=== PATIENT | female | born 1990 | race Caucasian/White ===

== ENCOUNTER 2020-12-11 03:31 | Observation (INO) ==
[2020-12-11 04:22] LABS: Bacteria,Urine Few per hpf (None-Few); Bilirubin,Urine Negative (Negative); Blood,Urine Negative (Negative); Clarity,Urine Turbid (Clear); Color,Urine Yellow (Yellow); Glucose,Urine (UA) Normal (Normal); Ketones,Urine 40 mg/dL (Negative); Leukocyte Esterase,Urine Trace (Negative); Mucus,Urine Few per lpf (None-Few); Nitrite,Urine Negative (Negative); Protein,Urine Trace mg/dL (Neg-Trace); Specific Gravity,Urine 1.019 (1.010-1.025); Squamous Epithelial Cell,Urine Moderate per hpf (None-Few); Urobilinogen,Urine Normal (Normal); WBC,Urine 0-3 per hpf (0-3)
[2020-12-11] MEDS ORDERED: hydrOXYzine pamoate 25 MG CAPSULE PO ONE (04:58)
== END 2020-12-11 10:55 | disposition home or self-care (01) ==
LOC: 1NENULAB
PROVIDERS: ADMIT Registered Nurse; ATTEND Registered Nurse

== ENCOUNTER 2020-12-23 21:09 | Observation (INO) | END 2020-12-23 22:17 | disposition home or self-care (01) | LOC: 1NENULAB | PROVIDERS: ADMIT Advanced Practice Midwife; ATTEND Advanced Practice Midwife ==

== ENCOUNTER 2020-12-30 08:07 | Inpatient (IN) ==
[2020-12-30] MEDS ORDERED: Ondansetron 4 MG/2 ML VIAL IVP PRN (08:30)
[2020-12-30] MEDS ORDERED: Lidocaine 1% 20 ML MDV INFILT PRN (08:30)
[2020-12-30] MEDS ORDERED: Ringers Solution, Lactated 1,000 ML IVC SCH (08:30)
[2020-12-30] MEDS ORDERED: Famotidine 20 MG/2 ML VIAL IVP PRN (08:30)
[2020-12-30] MEDS ORDERED: Metoclopramide 10 MG/2 ML VIAL IVP PRN (08:30)
[2020-12-30] MEDS ORDERED: *HR* Nalbuphine 10 MG/ML AMPUL IV PRN (08:30)
[2020-12-30] MEDS ORDERED: Naloxone 0.4 MG/ML INJ IVP PRN (08:30)
[2020-12-30 11:00] LABS: Basophils % 0.2 %; Eosinophils # 0.1 K/mcL (0.0-0.6); Hematocrit 36.4 % (35.3-44.9); Hemoglobin 11.7 g/dL (11.5-15.4); Immature Granulocytes % 0.6 % (0-4); Lymphocytes # 1.2 K/mcL (0.6-4.6); Lymphocytes % 10.1 %; Mean Corpuscular HGB Conc 32.1 g/dL (31.6-35.5); Mean Corpuscular Hemoglobin 26.4 pg (28.0-33.3); Mean Platelet Volume 11.3 fL (9.4-12.4); Monocytes # 0.6 K/mcL (0.0-1.3); Monocytes % 5.5 %; Neutrophils # 9.5 K/mcL (1.6-8.9); Platelet Count 211 K/mcL (140-400); Red Blood Count 4.44 M/mcL (3.82-4.97); Red Cell Distribution Width 15.9 % (11.5-14.5); Segmented Neutrophils % 82.6 %; White Blood Count 11.5 K/mcL (4.3-11.1)
[2020-12-30] MEDS: miSOPROStoL 25 MCG TABLET PO PRN ×2 (11:36→16:38)
[2020-12-30 11:42] LABS: Amphetamine Screen,Urine Negative ng/mL (Cutoff=1000); Barbiturate Screen,Urine Negative ng/mL (Cutoff=200); Benzodiazepines Screen,Urine Negative ng/mL (Cutoff=200); Cannabinoid Screen,Urine Negative ng/mL (Cutoff = 50); Cocaine Screen,Urine Negative ng/mL (Cutoff= 300); Opiate Screen,Urine Negative ng/mL (Cutoff=300); Phencyclidine Screen,Urine Negative ng/mL (Cutoff=25)
[2020-12-30] MEDS ORDERED: EPHEDrine 50 MG/ML VIAL IVP PRN (13:10)
[2020-12-30] MEDS ORDERED: Epidural Premix (fent/bupiv) 110 ML EP SCH (13:15)
[2020-12-30] MEDS ORDERED: Oxytocin 20 units/ LR 1000 mL 20 UNIT/1,000 ML BAG IVC SCH (18:30)
[2020-12-30] MEDS ORDERED: Acetaminophen 325 MG TABLET PO PRN (21:53)
[2020-12-31] MEDS ORDERED: Ondansetron 4 MG/2 ML VIAL ONE (04:50)
[2020-12-31] MEDS ORDERED: *HR* Phenylephrine 10 MG/ML VIAL ONE (04:50)
[2020-12-31] MEDS ORDERED: EPHEDrine 50 MG/ML VIAL ONE (04:52)
[2020-12-31] MEDS ORDERED: Ketorolac 30 MG/ML VIAL ONE (04:53)
[2020-12-31] MEDS ORDERED: Lidocaine/EPI 1:200k 2% PF 20 ML VIAL ONE (04:59)
[2020-12-31] MEDS ORDERED: *HR* FentaNYL (PF) 100 MCG/2 ML VIAL ONE ×2 (05:03→05:14)
[2020-12-31] MEDS ORDERED: *HR* Morphine Sulfate/PF 10 MG/10 ML AMPUL ONE (05:55)
[2020-12-31] MEDS ORDERED: Rho Immune Globulin 1,500 UNIT SYRINGE IM ONE (07:15)
[2020-12-31] MEDS ORDERED: Ondansetron 4 MG/2 ML VIAL IVP PRN (07:15)
[2020-12-31] MEDS ORDERED: Metoclopramide 10 MG/2 ML VIAL IVP PRN (07:15)
[2020-12-31] MEDS ORDERED: Oxytocin 20 units/ LR 1000 mL 20 UNIT/1,000 ML BAG IVC SCH (07:15)
[2020-12-31] MEDS ORDERED: Ringers Solution, Lactated 1,000 ML IVC SCH (07:15)
[2020-12-31] MEDS ORDERED: Sennosides 8.6 MG TABLET PO PRN (07:15)
[2020-12-31] MEDS ORDERED: NON-FORMULARY MEDICATION 1 EACH EACH (Prenatal Caplet 1 TAB) PO SCH (09:00)
[2020-12-31] MEDS: metroNIDAZOLE 500 MG TABLET PO SCH ×3 (11:19→21:54)
[2020-12-31] MEDS: cephALEXin 500 MG CAPSULE PO SCH ×3 (11:19→21:48)
[2020-12-31] MEDS: Prenatal Vit/FA 1 EACH TABLET PO SCH (11:19)
[2020-12-31] MEDS: Ibuprofen 600 MG TABLET PO PRN ×2 (14:36→21:47)
[2020-12-31] MEDS: *HR* OxyCODONE/APAP 5/325 TABLET PO PRN (20:15)
[2021-01-01] MEDS: *HR* OxyCODONE/APAP 5/325 TABLET PO PRN ×5 (01:31→20:22)
[2021-01-01] MEDS: Ibuprofen 600 MG TABLET PO PRN ×4 (04:34→20:24)
[2021-01-01 05:33] LABS: Basophils % 0.2 %; Eosinophils # 0.1 K/mcL (0.0-0.6); Eosinophils % 0.6 %; Hematocrit 24.8 % (35.3-44.9); Immature Granulocytes % 0.8 % (0-4); Lymphocytes # 1.7 K/mcL (0.6-4.6); Lymphocytes % 10.5 %; Mean Corpuscular HGB Conc 31.9 g/dL (31.6-35.5); Mean Corpuscular Hemoglobin 26.3 pg (28.0-33.3); Mean Corpuscular Volume 82.7 fL (83.0-100.0); Monocytes % 6.1 %; Platelet Count 190 K/mcL (140-400); Red Cell Distribution Width 16.1 % (11.5-14.5); Segmented Neutrophils % 81.8 %; White Blood Count 15.8 K/mcL (4.3-11.1)
[2021-01-01 05:34] LABS: Hemoglobin 7.9 g/dL (11.5-15.4)
[2021-01-01] MEDS: Prenatal Vit/FA 1 EACH TABLET PO SCH (07:45)
[2021-01-01] MEDS: cephALEXin 500 MG CAPSULE PO SCH ×3 (07:46→20:22)
[2021-01-01] MEDS: metroNIDAZOLE 500 MG TABLET PO SCH ×3 (07:46→20:23)
[2021-01-01] MEDS ORDERED: Ferumoxytol 510 MG in 0.9 % Sodium Chloride 100 ML IVPB ONE (08:42)
[2021-01-01] MEDS: Simethicone 80 MG TAB.CHEW PO PRN (15:22)
[2021-01-02] MEDS ORDERED: *HR* LORazepam 2 MG/ML VIAL IVP ONE (02:13)
[2021-01-02 02:35] LABS: Basophils % 0.2 %; Eosinophils # 0.1 K/mcL (0.0-0.6); Hematocrit 23.7 % (35.3-44.9); Hemoglobin 7.3 g/dL (11.5-15.4); Immature Granulocytes % 2.7 % (0-4); Lymphocytes # 1.6 K/mcL (0.6-4.6); Lymphocytes % 12.8 %; Mean Corpuscular HGB Conc 30.8 g/dL (31.6-35.5); Mean Corpuscular Hemoglobin 26.4 pg (28.0-33.3); Mean Corpuscular Volume 85.6 fL (83.0-100.0); Monocytes # 0.8 K/mcL (0.0-1.3); Monocytes % 6.2 %; Neutrophils # 9.4 K/mcL (1.6-8.9); Platelet Count 196 K/mcL (140-400); Red Blood Count 2.77 M/mcL (3.82-4.97); Red Cell Distribution Width 16.1 % (11.5-14.5); Segmented Neutrophils % 77.1 %; White Blood Count 12.3 K/mcL (4.3-11.1)
[2021-01-02] MEDS ORDERED: Perflutren Lipid Microsphere 1.3 ML in 0.9 % Sodium Chloride 8.7 ML IVP PRN (02:47)
[2021-01-02 02:55] LABS: Troponin I < 0.03 ng/mL (< 0.04)
[2021-01-02] MEDS ORDERED: 0.9 % Sodium Chloride 250 ML IVC SCH (03:00)
[2021-01-02 03:04] LABS: Alanine Aminotransferase 8 Units/L (7-52); Albumin 2.6 g/dL (3.5-5.7); Albumin/Globulin Ratio 1.1 (1.1-2.2); Alkaline Phosphatase 61 Units/L (34-104); Aspartate Amino Transferase 18 Units/L (13-39); Bilirubin,Total 0.2 mg/dL (0.3-1.0); Blood Urea Nitrogen 10 mg/dL (6-20); Calcium 8.2 mg/dL (8.6-10.3); Carbon Dioxide 25 mEq/L (23-29); Chloride 108 mEq/L (98-107); Globulin 2.4 g/dL (2.4-3.5); Glucose 103 mg/dL (70-105); Osmolality,Calculated 287 (280-300); Potassium 3.7 mEq/L (3.5-5.1); Sodium 139 mEq/L (136-145)
[2021-01-02] MEDS ORDERED: hydrOXYzine pamoate 25 MG CAPSULE PO PRN (03:17)
[2021-01-02 03:50] LABS: BUN/Creatinine Ratio 21 (6-26); eGFR For African Americans > 60 (> 60); eGFR For Non-African Americans > 60 (> 60)
[2021-01-02 07:31] LABS: Troponin I < 0.03 ng/mL (< 0.04)
[2021-01-02 07:41] LABS: Thyroid Stimulating Hormone 2.433 mcIU/mL (0.340-5.600)
[2021-01-02] MEDS: Prenatal Vit/FA 1 EACH TABLET PO SCH (08:57)
[2021-01-02] MEDS: Ibuprofen 600 MG TABLET PO PRN ×2 (08:57→16:22)
[2021-01-02] MEDS: Simethicone 80 MG TAB.CHEW PO PRN (09:37)
[2021-01-02 10:13] LABS: Hematocrit 28.7 % (35.3-44.9)
[2021-01-02] MEDS ORDERED: Acetaminophen 325 MG TABLET PO PRN (11:50)
[2021-01-02 16:09] VITALS: BP 123/77
== END 2021-01-02 17:18 | disposition home or self-care (01) | DRG 540 ==
LOC: 1NENULAB 08:07 → 1NENUOBS 12-31 08:56 → 2ANU 01-02 03:18
PROVIDERS: ADMIT Advanced Practice Midwife; ATTEND Obstetrics & Gynecology

== ENCOUNTER 2021-06-12 09:00 | Inpatient (IN) ==
[2021-06-12] MEDS ORDERED: *HR* LORazepam 1 MG TABLET PO ONE (09:16)
[2021-06-12 09:33] LABS: Basophils % 0.2 %; Eosinophils % 0.3 %; Immature Granulocytes % 0.2 % (0-4); Lymphocytes # 1.5 K/mcL (0.6-4.6); Lymphocytes % 15.4 %; Mean Corpuscular HGB Conc 32.5 g/dL (31.6-35.5); Mean Corpuscular Hemoglobin 26.7 pg (28.0-33.3); Mean Corpuscular Volume 82.3 fL (83.0-100.0); Mean Platelet Volume 11.3 fL (9.4-12.4); Monocytes # 0.5 K/mcL (0.0-1.3); Monocytes % 5.3 %; Neutrophils # 7.5 K/mcL (1.6-8.9); Platelet Count 277 K/mcL (140-400); Red Blood Count 4.86 M/mcL (3.82-4.97); Red Cell Distribution Width 15.5 % (11.5-14.5); Segmented Neutrophils % 78.6 %; White Blood Count 9.6 K/mcL (4.3-11.1)
[2021-06-12 09:51] LABS: Amphetamine Screen,Urine Negative ng/mL (Cutoff=1000); Barbiturate Screen,Urine Negative ng/mL (Cutoff=200); Benzodiazepines Screen,Urine Negative ng/mL (Cutoff=200); Cannabinoid Screen,Urine Negative ng/mL (Cutoff = 50); Cocaine Screen,Urine Negative ng/mL (Cutoff= 300); Opiate Screen,Urine Negative ng/mL (Cutoff=300); Phencyclidine Screen,Urine Negative ng/mL (Cutoff=25)
[2021-06-12 09:53] LABS: Bilirubin,Urine Negative (Negative); Blood,Urine Trace (Negative); Clarity,Urine Clear (Clear); Color,Urine Yellow (Yellow); Glucose,Urine (UA) Normal (Normal); Ketones,Urine 10 mg/dL (Negative); Leukocyte Esterase,Urine Negative (Negative); Mucus,Urine Moderate per lpf (None-Few); Nitrite,Urine Negative (Negative); Protein,Urine 50 mg/dL (Neg-Trace); RBC,Urine 0-3 per hpf (0-3); Specific Gravity,Urine > 1.030 (1.010-1.025); Squamous Epithelial Cell,Urine Few per hpf (None-Few); Urobilinogen,Urine Normal (Normal); WBC,Urine 0-3 per hpf (0-3)
[2021-06-12 10:12] LABS: Acetaminophen < 10 mcg/mL (10-20); BUN/Creatinine Ratio 17 (6-26); Blood Urea Nitrogen 14 mg/dL (6-20); Calcium 9.4 mg/dL (8.6-10.3); Carbon Dioxide 24 mEq/L (23-29); Chloride 107 mEq/L (98-107); Ethanol < 10 mg/dL (Less than 10); Glucose 104 mg/dL (70-105); Osmolality,Calculated 291 (280-300); Potassium 3.5 mEq/L (3.5-5.1); Salicylate < 2.5 mg/dL (15.0-30.0); Sodium 140 mEq/L (136-145); eGFR For African Americans > 60 (> 60); eGFR For Non-African Americans > 60 (> 60)
[2021-06-12 10:45] LABS: Influenza A PCR Negative (Negative); Influenza B PCR Negative (Negative); Resp. Syncytial Virus PCR Negative (Negative)
[2021-06-12 10:46] LABS: SARS-CoV-2 by PCR (In House) Negative (Negative)
[2021-06-12] MEDS ORDERED: Haloperidol Lactate 5 MG/ML VIAL IM PRN (12:01)
[2021-06-12] MEDS ORDERED: haloperidoL 5 MG TABLET PO PRN (12:01)
[2021-06-12] MEDS ORDERED: MOM Conc 10 ML UD.LIQ PO PRN (12:01)
[2021-06-12] MEDS ORDERED: *HR* LORazepam 1 MG TABLET PO PRN (12:01)
[2021-06-12] MEDS ORDERED: hydrOXYzine pamoate 25 MG CAPSULE PO PRN (12:01)
[2021-06-12] MEDS ORDERED: Mag Hydrox/Al Hydrox/Simeth 30 ML UDC PO PRN (12:01)
[2021-06-12] MEDS ORDERED: traZODone 50 MG TABLET PO PRN (12:01)
[2021-06-12] MEDS ORDERED: *HR* LORazepam 2 MG/ML VIAL IM PRN (12:01)
[2021-06-12] MEDS ORDERED: Acetaminophen 325 MG TABLET PO PRN (12:01)
[2021-06-12] MEDS: risperiDONE 1 MG TABLET PO SCH ×2 (14:47→20:56)
[2021-06-12] MEDS: Prenatal Vit/FA 1 EACH TABLET PO SCH (14:49)
[2021-06-13] MEDS: Prenatal Vit/FA 1 EACH TABLET PO SCH (09:20)
[2021-06-13] MEDS: risperiDONE 1 MG TABLET PO SCH (09:20)
[2021-06-13 10:40] VITALS: BP 120/73; PULSE 88; TEMP 98.3; O2SAT 97
== END 2021-06-13 15:25 | disposition home or self-care (01) | DRG 753 ==
LOC: EMEROOARM 09:00 → 1ANU 11:58
PROVIDERS: ADMIT Psychiatry & Neurology Psychiatry; ATTEND Psychiatry & Neurology Psychiatry